=== PATIENT | female | born 1950 | race Caucasian/White ===

== ENCOUNTER → 2016-06-20 | Outpatient (CLI) | payer BC ==
--- NOTE | 2016-06-23 09:35 | DI ---
CT UPPER EXTREMITY W/O CNT,06/20/2016 1:06 PM: Clinical History: Left wrist fracture. Previous Exam: None at this facility. Findings: Multiple helically acquired CT images are obtained through the left wrist without contrast. Sagittal coronal and 3-D reconstructions are also obtained, and demonstrate a comminuted left distal radial fr acture. There is also an ulnar styloid avulsion. This fracture involves the articular surface of the distal radius with severe comminution. There is slight posterior displacement of the distal radius as well. The lunate is unremarkable. The other carpal bones are also unremarkable. There is no diastases of th e scapholunate interval. Overlying plaster limits fine bony detail. Impression: Comminuted, intra-articular left distal radial fracture with slight posterior displacement of the dis shonna fragment.
== END ==
LOC: CT 12:55
PROVIDERS: ATTEND Orthopaedic Surgery
DX: S52.572A Other intraarticular fracture of lower end of left radius, initial encounter for closed fracture (principal); Y30.XXXA Falling, jumping or pushed from a high place, undetermined intent, initial encounter; Y93.89 Activity, other specified
CPT/HCPCS: 73200; 76377

== ENCOUNTER 2016-06-21 07:16 | Day surgery (SDC) | payer BC ==
[~2016-06-21 07:16] MED LIST: LIDOCAINE W/ SODIUM BICARB 0.5 ML SYR ONE; Lactated Ringers 1,000 ML PRIMARY IV ONE; ceFAZolin Inj 2gm (Premix) 50 ML IV ONE
[2016-06-21] MEDS ORDERED: BACITRACIN 50,000 UNIT VIAL IRRIG ONE (08:01)
[2016-06-21] MEDS ORDERED: Sodium Chloride 0.9% vial 10 ML ONE (08:02)
[2016-06-21] MEDS ORDERED: fentaNYL Inj 100 MCG/2 ML VIAL ONE (08:10)
[2016-06-21] MEDS ORDERED: MIDAZOLAM 5 MG/1 ML ONE (08:10)
[2016-06-21] MEDS ORDERED: LIDOCAINE 2%/ EPI 1:200,000 - 20 ML VIAL ONE (08:10)
[2016-06-21] MEDS ORDERED: DEXAMETHASONE SOD PHOSPHATE 4 MG/1 ML VIAL ONE (08:10)
[2016-06-21] MEDS ORDERED: MEPIVACAINE HCL/PF 20 MG/1 ML IV ONE (08:10)
[2016-06-21] MEDS ORDERED: ONDANSETRON 4 MG/2 ML VIAL IVP PRN ×2 (08:26→11:28)
[2016-06-21] MEDS ORDERED: Prochlorperazine Tab 10 MG TAB PO PRN ×2 (08:26→11:28)
[2016-06-21] MEDS ORDERED: ACETAMINOPHEN 325 MG TABLET PO PRN ×2 (08:26→11:28)
[2016-06-21] MEDS ORDERED: diphenhydrAMINE 25 MG CAPSULE PO PRN ×2 (08:26→11:28)
[2016-06-21] MEDS ORDERED: BISACODYL 10 MG SUPPOSITORY RECTAL PRN ×2 (08:26→11:28)
[2016-06-21] MEDS ORDERED: NORMAL SALINE 10 ML SYRINGE FLUSH IVP PRN ×2 (08:26→11:28)
[2016-06-21] MEDS ORDERED: CALCIUM CARBONATE 500 MG (TUMS) CHEWABLE TABLET PO PRN ×2 (08:26→11:28)
[2016-06-21] MEDS ORDERED: MAG HYDROX/AL HYDROX/SIMETH 30 ML SUSP PO PRN ×2 (08:26→11:28)
[2016-06-21] MEDS ORDERED: IBUPROFEN 400 MG TABLET PO PRN ×2 (08:26→11:28)
[2016-06-21] MEDS ORDERED: HYDROcodone-APAP 7.5 MG-325 MG TABLET PO PRN (08:26)
[2016-06-21] MEDS ORDERED: BISACODYL 5 MG TABLET PO PRN ×2 (08:26→11:28)
[2016-06-21] MEDS ORDERED: Ondansetron ODT Tab 8 MG TAB PO PRN ×2 (08:26→11:28)
--- NOTE | 2016-06-21 08:27 | CRNA.PROCE ---
Nerve Block Documentation - - Type of Nerve Block Used: Left Axillary Block Position for Nerve Block: Supine Moniters Used During Block: EKG, SPO2, NIBP Oxygen Sumpplented: Yes Sedation Used - Enter Amount in Comment Field: Midazolam (mg): Yes (2mg), Fentanyl (mcg): Yes (100mg) Skin Prep Used: ChloroPrep Draped: No Technique: Nerve Stimulator Nerve Block Needle Used: 40 mm ProBlk II Stimulation Hz: 2 Stimulation Staring mA: 2 Stimulation Ending mA: 0.4 Local Anesthetic - Enter Amt in Comment Field: 0.5 % Bupivacaine Plain (mL): Yes (20ml), 2 % Xylocaine with Epinephrine 1:200,000 (mL): Yes (20ml) Additives to Nerve Blocks: Dexamethasone (mL): Yes (8mg(2ml))
[2016-06-21] MEDS ORDERED: Lactated Ringers 1,000 ML PRIMARY IV ONE (10:23)
[2016-06-21] MEDS ORDERED: BUPivacaine Liposome/PF (Exparel) Inj 20ml vial INFIL ONE (10:31)
[2016-06-21] MEDS ORDERED: KETOROLAC 30 MG/1 ML VIAL ONE (10:42)
[2016-06-21] MEDS ORDERED: MORPHINE SULFATE 2 MG/1 ML IVP PRN (11:28)
[2016-06-21] MEDS ORDERED: Lactated Ringers 1,000 ML PRIMARY IV SCH (11:30)
[2016-06-21 12:31] VITALS: RESP 14; TEMP 97.4
== END 2016-06-21 12:35 | disposition home or self-care (01) ==
LOC: SDSC 07:16
PROVIDERS: ATTEND Orthopaedic Surgery
DX: S62.102A Fracture of unspecified carpal bone, left wrist, initial encounter for closed fracture (principal); W18.39XA Other fall on same level, initial encounter
CPT/HCPCS: 25609; 76001; A4216; C9290; J0690; J1885; J2704; J3010; J0670; J1100; J2250; J7120

== ENCOUNTER → 2016-07-17 | Outpatient (CLI) | payer BC ==
--- NOTE | 2016-07-17 13:15 | DI ---
LEFT WRIST, 07/17/2016 11:58 AM: Clinical History: Closed Colles' fracture of the distal left radius with routine healing and subseque nt encounter. Previous Exam: Comparison is made with fluoroscopic spot films of the wrist during surgery from 2016. 3 views are submitted. This patient had a severely angulated and impacted intra-articular fracture of the distal radius with a fracture of the ulnar styloid. A volar buttress plate is present. The dista l radial articular surface is in anatomic position. Fracture lucencies are still visible in the dista l radius but there is periosteal new bone formation. There is delayed or nonunion of the ulnar styloi d fracture. Readin. There is healing of the comminuted fracture of the distal radius with intra-articular involvement . Alignment and position are anatomic. 2. There is a fracture of the ulnar styloid with delayed or nonunion.
== END ==
LOC: ORTHO 12:13
PROVIDERS: ATTEND Orthopaedic Surgery
DX: S52.532E Colles' fracture of left radius, subsequent encounter for open fracture type I or II with routine healing (principal); S52.615D Nondisplaced fracture of left ulna styloid process, subsequent encounter for closed fracture with routine healing
CPT/HCPCS: 73110

== ENCOUNTER → 2016-09-15 | Outpatient (CLI) | payer BC ==
--- NOTE | 2016-09-16 08:22 | DI ---
XR WRIST COMPLETE MIN 3VW,09/15/2016 12:01 PM: Clinical History: Left radial fracture. Previous Exam: July 17, 2016 Findings: 3 views of the left wrist are obtained, and demonstrate screw and plate fixation of the left distal r adius. There is also an avulsion fracture of the left ulnar styloid which is unchanged from the prior exam. Impression: Stable postsurgical changes as above.
== END ==
LOC: ORTHO 12:08
PROVIDERS: ATTEND Orthopaedic Surgery
DX: S52.532E Colles' fracture of left radius, subsequent encounter for open fracture type I or II with routine healing (principal); S52.615D Nondisplaced fracture of left ulna styloid process, subsequent encounter for closed fracture with routine healing
CPT/HCPCS: 73110